=== PATIENT | male | born 1995 | race Caucasian/White ===

== ENCOUNTER 2017-03-01 12:31 | Emergency (ER) | payer BC ==
[2017-03-01 13:24] LABS: BASOPHILS 0.1 % (0-2); EOSINOPHILS 0.4 % (0-7); HEMATOCRIT 45.7 % (42.0-54.0); IMMATURE GRANULOCYTES 0.2 % (0-5); MCH 31.3 pg (26.0-34.0); MCV 89.4 fL (80.0-100.0); MEAN PLATELET VOLUME 10.5 fL (7.4-10.4); MONOCYTES 8.2 % (2-11); NEUTROPHILS 81.1 % (40-80); PLATELET COUNT 138 10x3/uL (130-400); RBC 5.11 10x6/uL (4.20-6.10); RDW 12.2 % (11.5-14.5); WBC 8.2 10x3/uL (4.8-10.8)
[2017-03-01 14:04] LABS: ALBUMIN 4.5 g/dL (3.4-5.0); ALKALINE PHOSPHATASE 93 U/L (46-116); ALT (SGPT) 17 U/L (10-68); BILIRUBIN - TOTAL 3.09 mg/dL (0.2-1.3); CALC OSMOLALITY 275 mosm/kg (275-300); CALCIUM 8.9 mg/dL (8.5-10.1); CARBON DIOXIDE 27.8 mmol/L (21.0-32.0); CHLORIDE - SERUM 102 mmol/L (98-107); CREATININE - SERUM 0.9 mg/dL (0.6-1.3); GLUCOSE 102 mg/dL (74-106); POTASSIUM - SERUM 3.9 mmol/L (3.5-5.1); PROTEIN - SERUM 7.3 g/dL (6.4-8.2); SODIUM 139 mmol/L (136-145); UREA NITROGEN 8 mg/dL (7-18); eGFR NON AFRICAN AMERICAN > 90 mL/min (90-120)
[2017-03-01 17:11] LABS: AMYLASE - SERUM 38 U/L (25-115); LIPASE 119 U/L (73-393)
== END 2017-03-01 19:15 | disposition home or self-care (01) ==
LOC: D.ER 12:31
PROVIDERS: Family Medicine
DX: N45.1 Epididymitis (principal)

== ENCOUNTER 2019-12-21 20:38 | Emergency (ER) | payer OTHER ==
[~2019-12-21] VITALS: Ht 177.8 cm; Wt 72.7 kg
[2019-12-21 21:06] VITALS: Ht 177.8 cm; Wt 72.7 kg
[2019-12-21] MEDS ORDERED: BUSPAR5 MG PO (21:07)
[2019-12-21] MEDS ORDERED: TRINTELLIX5 MG PO (21:07)
[2019-12-21] MEDS ORDERED: KLONOPIN1 MG PO (21:07)
[2019-12-21 21:10] LABS: BASOPHILS 0.2 % (0-2); EOSINOPHILS 0.5 % (0-7); HEMATOCRIT 47.2 % (42.0-54.0); HEMOGLOBIN 16.3 g/dL (13.5-17.5); IMMATURE GRANULOCYTES 0.2 % (0-5); LYMPHOCYTES 15.9 % (15-50); MCH 31.1 pg (26.0-34.0); MCHC 34.5 g/dL (31.0-37.0); MCV 90.1 fL (80.0-100.0); MEAN PLATELET VOLUME 10.5 fL (7.4-10.4); MONOCYTES 8.7 % (2-11); NEUTROPHILS 74.5 % (40-80); RBC 5.24 10x6/uL (4.20-6.10); RDW 12.3 % (11.5-14.5); WBC 9.9 10x3/uL (4.8-10.8)
[2019-12-21 21:11] LABS: PLATELET COUNT 182 10x3/uL (130-400)
[2019-12-21 21:20] LABS: CALC OSMOLALITY 279 mosm/kg (275-300); CALCIUM 8.9 mg/dL (8.5-10.1); CARBON DIOXIDE 30.7 mmol/L (21.0-32.0); CHLORIDE - SERUM 103 mmol/L (98-107); CREATININE - SERUM 1.1 mg/dL (0.6-1.3); GLUCOSE 91 mg/dL (74-106); POTASSIUM - SERUM 3.8 mmol/L (3.5-5.1); SODIUM 140 mmol/L (136-145); UREA NITROGEN 15 mg/dL (7-18); eGFR NON AFRICAN AMERICAN 89 mL/min (90-120)
[2019-12-21 21:26] LABS: ALBUMIN 4.6 g/dL (3.4-5.0); ALKALINE PHOSPHATASE 100 U/L (30-120); ALT (SGPT) 34 U/L (10-68); BILIRUBIN - TOTAL 1.16 mg/dL (0.2-1.3); MAGNESIUM - SERUM 1.9 mg/dL (1.8-2.4)
[2019-12-21 21:31] LABS: BILIRUBIN NEGATIVE (NEGATIVE); GLUCOSE NEGATIVE (NEGATIVE); KETONE NEGATIVE (NEGATIVE); NITRITE NEGATIVE (NEGATIVE); UROBILINOGEN NORMAL (NORMAL)
[2019-12-21 21:33] LABS: UDS - AMPHET NEGATIVE QUAL (NEGATIVE); UDS - BARB NEGATIVE QUAL (NEGATIVE); UDS - BENZO POSITIVE QUAL (NEGATIVE); UDS - COCAINE NEGATIVE QUAL (NEGATIVE); UDS - OPIATE NEGATIVE QUAL (NEGATIVE); UDS - PCP NEGATIVE QUAL (NEGATIVE); UDS - THC NEGATIVE QUAL (NEGATIVE)
--- NOTE | 2019-12-21 22:06 | NUR ---
PATIENT IS HERE FOR HAVING HAD FLEETING THOUGHTS OF SUICIDE TODAY, BUT DOES NOT WANT TO COMMIT SUICIDE, HE SAYS, "I WOULD NEVER DO IT AND THE THOUGHT DOES NOT LAST LONG". PATIENT IS ABLE TO COMMIT TO A SAFETY PLAN TO NOT HARM HIMSELF IF HE IS DISCHARGED FROM HERE. HE DOES SEE A PSYCHIATRIST ON AN OUTPATIENT BASIS FOR DEPRESSION AND ANXIETY. HE REPORTS THAT HE WANTS TO TRY BIPOLAR MEDICATION. EXPLAINED TO HIM THAT WOULD BE UP TO THE DOCTOR. 1800 NUMBER GIVEN TO HIM FOR FUTURE REFERENCE. HOWEVER, HE WILL BE PLACED ON 1:1 FOR THOUGHTS.
[2019-12-22 02:02] VITALS: BP 122/74
== END 2019-12-22 02:03 ==
LOC: D.ER 20:38
PROVIDERS: Family Medicine
DX: R45.851 Suicidal ideations (principal); F32.9 Major depressive disorder, single episode, unspecified